=== PATIENT | female | born 1975 | race Caucasian/White ===

== ENCOUNTER 2021-08-17 07:18 | Day surgery (SDC) | payer SELFPAY ==
[2021-08-12 14:44] VITALS: BMI 24.3
[2021-08-17] MEDS ORDERED: PROPOFOL 20 ML ONE ×4 (07:21→15:29)
[2021-08-17] MEDS ORDERED: ROCURONIUM BROMIDE 50 MG/5 ML SYRINGE ONE ×2 (07:34→12:12)
[2021-08-17] MEDS ORDERED: HYDROmorphone HCL/PF 1 MG/ML VIAL ONE ×2 (07:36→12:31)
[2021-08-17] MEDS ORDERED: EPINEPHrine/PF 1 MG/1 ML (1:1,000) AMPULE ONE (07:48)
[2021-08-17] MEDS ORDERED: BUPIVACAINE HCL/PF 2.5 MG/ML - 30 ML VIAL IJ ONE (07:49)
[2021-08-17] MEDS ORDERED: BUPIVACAINE HCL/PF 0.25% (2.5MG/ML) 10 ML VIAL ONE (07:49)
[2021-08-17] MEDS ORDERED: LIDOCAINE HCL 1%, 10 MG/ML (20ML VIAL) ONE (07:50)
[2021-08-17] MEDS ORDERED: MIDAZOLAM HCL 2 MG/2 ML SINGLE DOSE VIAL ONE (08:08)
[2021-08-17] MEDS ORDERED: DEXMEDETOMIDINE HCL 200 MCG/2 ML IVPB ONE (08:08)
[2021-08-17] MEDS ORDERED: BUPIVACAINE LIPOSOME/PF (EXPAREL) 266 MG/20 ML VIAL ONE (08:17)
[2021-08-17] MEDS ORDERED: ACETAMINOPHEN INJECTION 100 ML IVPB ONE (08:44)
[2021-08-17] MEDS ORDERED: HEPARIN NA (PORCINE) 5,000 UNITS/ML 1ML VIAL ONE (09:00)
[2021-08-17] MEDS ORDERED: NEOSTIGMINE METHYLSULFATE 0.5 MG/1 ML - 10 ML MDV ONE (15:09)
[2021-08-17] MEDS ORDERED: BACITRACIN 15 GM TUBE TOPICAL OINTMENT ONE (15:26)
[2021-08-17] MEDS ORDERED: PROMETHAZINE HCL 25 MG/1 ML VIAL IVPUSH PRN (15:52)
[2021-08-17] MEDS ORDERED: LACTATED RINGERS SOLUTION 1,000 ML IV SCH ×2 (16:00→16:15)
[2021-08-17] MEDS ORDERED: ceFAZolin SODIUM 1 GM VIAL ONE (16:09)
[2021-08-17] MEDS ORDERED: oxyCODONE HCL 5 MG TABLET PO PRN (16:09)
[2021-08-17] MEDS: CEFAZOLIN 1 GM/D5W 1 GM/50 ML BAG IVPB SCH (21:06)
[2021-08-17] MEDS: morphine SULFATE 4 MG/ML VIAL IVPUSH PRN (22:22)
[2021-08-17] MEDS: ONDANSETRON 4 MG/2 ML VIAL IVPB PRN (22:22)
[2021-08-18] MEDS: CEFAZOLIN 1 GM/D5W 1 GM/50 ML BAG IVPB SCH ×2 (04:00→09:44)
[2021-08-18] MEDS: morphine SULFATE 4 MG/ML VIAL IVPUSH PRN (05:47)
[2021-08-18] MEDS: ONDANSETRON 4 MG/2 ML VIAL IVPB PRN (05:54)
[2021-08-18] MEDS: HEPARIN NA (PORCINE) 5,000 UNITS/ML 1ML VIAL SQ SCH ×2 (08:19→09:44)
[2021-08-18 13:46] VITALS: BP 127/82; PULSE 84; TEMP 98.5
== END 2021-08-18 13:35 | disposition home or self-care (01) ==
LOC: FASU 07:18 → FM/S 17:25 → FASU 08-18 13:35
PROVIDERS: ATTEND Plastic Surgery
PROC: 0H0V0ZZ Alteration of Bilateral Breast, Open Approach (ICD-10-PCS; principal; 2021-08-17 09:25)
PROC: 0J080ZZ Alteration of Abdomen Subcutaneous Tissue and Fascia, Open Approach (ICD-10-PCS; 2021-08-17 09:25)
PROC: 0J083ZZ Alteration of Abdomen Subcutaneous Tissue and Fascia, Percutaneous Approach (ICD-10-PCS; 2021-08-17 09:25)
DX: Z41.1 Encounter for cosmetic surgery (principal)
CPT/HCPCS: 81025; 88305-TC; 94760; J0131; J1644